=== PATIENT | male | born 1980 | race Caucasian/White ===

== ENCOUNTER 2022-07-30 16:33 | Emergency (ER) | payer SELFPAY ==
[~2022-07-30] VITALS: Ht 195.6 cm; Wt 132.7 kg
[~2022-07-30 16:33] MED LIST: METO50TA15
[2022-07-30] MEDS ORDERED: TETANUS-DIPTH-ACEL PERTUSSIS 0.5ML SYR Tdap IM ONE (18:45)
[2022-07-30] MEDS ORDERED: LIDOCAINE 1% HCL (LOCAL ANESTH.) INJ 20ML MDV ID ONE (18:45)
[2022-07-30] MEDS ORDERED: CEPH250C28 PO (19:05)
[2022-07-30 19:08] VITALS: BP 129/99
== END 2022-07-30 19:11 | disposition home or self-care (01) ==
LOC: ER 16:33
DX: S61.411A Laceration without foreign body of right hand, initial encounter (principal); F17.210 Nicotine dependence, cigarettes, uncomplicated; W25.XXXA Contact with sharp glass, initial encounter; Y93.89 Activity, other specified; Y92.89 Other specified places as the place of occurrence of the external cause; Y99.8 Other external cause status
CPT/HCPCS: 12001; 90471; 90715; 99283; J2001

== ENCOUNTER 2022-09-26 10:28 | Inpatient (IN) | payer BC, MEDICAID ==
[~2022-09-26] VITALS: Ht 193 cm; Wt 142.3 kg
[~2022-09-26 10:28] MED LIST changes: +CEPH250C28 PO
[2022-09-26] MEDS ORDERED: PANTOPRAZOLE 40 MG TAB PO ONE (11:15)
[2022-09-26 11:25] LABS: Urine Bacteria NONE SEEN /hpf (None Seen); Urine Blood Negative /uL (Negative); Urine Mucus FEW (None Seen); Urine Specific Gravity 1.016 (1.001-1.035); Urine WBC 1 /hpf (0 - 3)
[2022-09-26] MEDS ORDERED: FOLIC ACID 1 MG, MULTIPLE VITAMIN 10 ML, MAGNESIUM SULF SDV 50% 8 MEQ, THIAMINE INJ 100... INJ STA ×5 (11:27)
[2022-09-26 11:42] LABS: Hematocrit 37.5 % (41.0-53.0); Hemoglobin 12.9 g/dL (13.5-17.5); Mean Corpuscular Hemoglobin 38.6 pg (28.0-32.0); White Blood Cell 4.1 10^3/uL (4.4-10.8)
[2022-09-26 11:44] LABS: Mean Corpuscular Hgb Conc. 34.5 g/dL (32.0-36.0); Red Blood Cells 3.35 10^6/uL (4.5-5.90); Red Cell Distribution Width 15.9 % (11.8-14.3)
[2022-09-26 11:49] LABS: Albumin 2.5 g/dL (3.4-5.0); Potassium 3.7 mmol/L (3.5-5.1)
[2022-09-26 11:52] LABS: BUN/Creatinine Ratio 7.8 (10.0-20.0); INR 1.77 (0.9-1.15); Partial Thromboplastin Time 35.8 sec (24.6-33.4)
[2022-09-26 11:54] LABS: Bilirubin, Total 4.6 mg/dL (0.2-1.0); Total Protein 7.5 g/dL (6.4-8.2)
[2022-09-26 12:12] LABS: Band Neutrophils % (manual) 0; Basophils % (manual) 0 (0.0-2.0); Blast Cells 0; Metamyelocytes % 0; Myelocytes % 0; Promyelocytes % 0; Reactive Lymphocytes 0
[2022-09-26 12:16] LABS: Eosinophils % (manual) 2 (0-7); Lymphocytes % (manual) 25 (10.0-50.0); Monocytes % (manual) 5 (0-12)
[2022-09-26] MEDS ORDERED: hydrALAZINE HCL 20 MG/ML VL IV PRN (17:15)
[2022-09-26] MEDS ORDERED: FUROSEMIDE 20 MG/2 ML VIAL IV ONE (17:15)
[2022-09-26] MEDS ORDERED: POTASSIUM CHL 20 Meq TABLET PO ONE (17:15)
[2022-09-26] MEDS ORDERED: MULTIPLE VITAMIN TAB PO ONE (17:15)
[2022-09-26] MEDS ORDERED: cefTRIAXone 1GM/50ML D5W 50 ML IV ONE (18:45)
[2022-09-26] MEDS ORDERED: metroNIDAZOLE 500MG/100ML 100 ML IV ONE (18:45)
[2022-09-26] MEDS: metroNIDAZOLE 500MG/100ML 100 ML IV SCH (22:02)
[2022-09-27] MEDS ORDERED: ACETAMINOPHEN 325 MG TAB PO PRN (04:45)
[2022-09-27] MEDS: SALINE 0.65 % NASAL SPRAY 45ML BOTTLE EACHNOSTRI SCH ×4 (04:49→21:45)
[2022-09-27 05:40] LABS: Mean Corpuscular Hemoglobin 39.4 pg (28.0-32.0); Mean Corpuscular Hgb Conc. 35.4 g/dL (32.0-36.0)
[2022-09-27 05:42] LABS: Hematocrit 30.3 % (41.0-53.0); Hemoglobin 10.8 g/dL (13.5-17.5); Mean Corpuscular Volume 111.2 fL (80.0-100.0); Red Blood Cells 2.73 10^6/uL (4.5-5.90); White Blood Cell 3.7 10^3/uL (4.4-10.8)
[2022-09-27 05:52] LABS: Basophils % (manual) 0 (0.0-2.0); Blast Cells 0; Metamyelocytes % 0; Promyelocytes % 0; Reactive Lymphocytes 0
[2022-09-27 06:06] LABS: Calcium 7.6 mg/dL (8.5-10.1)
[2022-09-27 06:13] LABS: Albumin 2.1 g/dL (3.4-5.0); BUN/Creatinine Ratio 12.5 (10.0-20.0); Bilirubin, Total 4.4 mg/dL (0.2-1.0); Total Protein 6.4 g/dL (6.4-8.2)
[2022-09-27] MEDS: metroNIDAZOLE 500MG/100ML 100 ML IV SCH (06:14)
[2022-09-27 06:57] LABS: Band Neutrophils % (manual) 6; Eosinophils % (manual) 2 (0-7); Lymphocytes % (manual) 27 (10.0-50.0); Monocytes % (manual) 13 (0-12); Myelocytes % 1
[2022-09-27 07:05] LABS: Potassium 3.8 mmol/L (3.5-5.1)
[2022-09-27] MEDS ORDERED: PANTOPRAZOLE 40 MG/10 ML VIAL INJ IV SCH (10:00)
[2022-09-27] MEDS ORDERED: LOSARTAN POTASSIUM 50 MG TAB PO SCH (10:00)
[2022-09-27] MEDS: cefTRIAXone 1GM/50ML D5W 50 ML IV SCH (10:29)
[2022-09-27] MEDS: MULTIPLE VITAMIN TAB PO SCH (10:30)
[2022-09-27] MEDS: POTASSIUM CHL 10 Meq TABLET PO SCH (10:30)
[2022-09-27] MEDS: FUROSEMIDE 20 MG/2 ML VIAL IV SCH (10:31)
[2022-09-27] MEDS ORDERED: POLYETHYLENE GLYCOL 17 GM PWDR PO PRN (11:45)
[2022-09-27] MEDS ORDERED: SPIRONOLACTONE 25 MG TAB PO ONE (11:45)
[2022-09-27] MEDS ORDERED: THIAMINE HCL 100 MG TAB PO ONE (11:45)
[2022-09-27] MEDS ORDERED: IOHEXOL 350 MG/ML 100ML IJ ONE (11:45)
[2022-09-27] MEDS ORDERED: FOLIC ACID 1 MG TAB PO ONE (11:45)
[2022-09-27] MEDS ORDERED: POLYETHYLENE GLYCOL 17 GM PWDR PO ONE (11:45)
[2022-09-27 13:00] VITALS: BP 160/81
[2022-09-27 14:00] VITALS: BP 91/52
[2022-09-27 14:03] VITALS: BP 91/52
[2022-09-27 14:15] VITALS: BP 109/45
[2022-09-27] MEDS ORDERED: LOSA-69 PO (14:25)
[2022-09-27 17:00] VITALS: BP 109/45
[2022-09-27] MEDS: FAMOTIDINE 20 MG TAB PO SCH (21:45)
[2022-09-27 22:00] VITALS: BP 128/67
[2022-09-28 05:00] VITALS: BP 121/68
[2022-09-28] MEDS: SALINE 0.65 % NASAL SPRAY 45ML BOTTLE EACHNOSTRI SCH ×2 (05:42→16:10)
[2022-09-28 06:44] LABS: INR 1.97 (0.9-1.15); Partial Thromboplastin Time 39.6 sec (24.6-33.4)
[2022-09-28 07:31] LABS: Albumin 1.9 g/dL (3.4-5.0); BUN/Creatinine Ratio 14.8 (10.0-20.0); Calcium 7.8 mg/dL (8.5-10.1); Potassium 3.9 mmol/L (3.5-5.1)
[2022-09-28 07:32] LABS: Bilirubin, Total 3.3 mg/dL (0.2-1.0); Total Protein 5.8 g/dL (6.4-8.2)
[2022-09-28] MEDS ORDERED: LACTULOSE 20Gm/30ML SOLN PO PRN (08:30)
[2022-09-28] MEDS ORDERED: phytonadione 10 MG in SODIUM CHL 0.9% 50 ML IV ONE (08:30)
[2022-09-28 09:00] VITALS: BP 128/70
[2022-09-28 09:38] LABS: Hepatitis B Surface Antibody Negative (Negative)
[2022-09-28] MEDS: MULTIPLE VITAMIN TAB PO SCH (09:53)
[2022-09-28] MEDS: FAMOTIDINE 20 MG TAB PO SCH (09:54)
[2022-09-28] MEDS: POTASSIUM CHL 10 Meq TABLET PO SCH (09:55)
[2022-09-28] MEDS: cefTRIAXone 1GM/50ML D5W 50 ML IV SCH (09:56)
[2022-09-28] MEDS: FUROSEMIDE 20 MG/2 ML VIAL IV SCH (09:56)
[2022-09-28] MEDS ORDERED: FOLIC ACID 1 MG TAB PO SCH (10:00)
[2022-09-28] MEDS ORDERED: SPIRONOLACTONE 25 MG TAB PO SCH (10:00)
[2022-09-28] MEDS ORDERED: THIAMINE HCL 100 MG TAB PO SCH (10:00)
[2022-09-28 10:12] LABS: Hepatitis A Total Antibody Positive (Negative)
[2022-09-28 11:57] LABS: Hepatitis C Antibody Negative (Negative)
[2022-09-28] MEDS ORDERED: FOLI1TAB6 PO (12:52)
[2022-09-28] MEDS ORDERED: LACT10SO3 PO (12:52)
[2022-09-28] MEDS ORDERED: THIA100T10 PO (12:52)
[2022-09-28] MEDS ORDERED: POTA-167 PO (12:52)
[2022-09-28] MEDS ORDERED: FURO1TAB31 PO (12:52)
[2022-09-28] MEDS ORDERED: SPIR25TA PO (12:52)
[2022-09-28] MEDS ORDERED: MULTTAB99 PO (12:52)
[2022-09-28 13:00] VITALS: BP 137/80
[2022-09-28 15:38] VITALS: BP 128/70
== END 2022-09-28 16:00 | disposition home or self-care (01) | DRG 280 ==
LOC: ER 10:28 → OVERFLOW 18:31 → CENTRAL 09-27 13:30
PROVIDERS: ADMIT Nurse Practitioner Family; ATTEND Internal Medicine
PROC: 0W9G3ZZ Drainage of Peritoneal Cavity, Percutaneous Approach (ICD-10-PCS; principal; 2022-09-27)
DX: K70.31 Alcoholic cirrhosis of liver with ascites (principal); E43 Unspecified severe protein-calorie malnutrition; D69.6 Thrombocytopenia, unspecified; R65.10 Systemic inflammatory response syndrome (SIRS) of non-infectious origin without acute organ dysfunction; I10 Essential (primary) hypertension; E66.01 Morbid (severe) obesity due to excess calories; Z20.822 Contact with and (suspected) exposure to COVID-19; F10.10 Alcohol abuse, uncomplicated; R60.1 Generalized edema; F17.210 Nicotine dependence, cigarettes, uncomplicated; M85.68 Other cyst of bone, other site; Z68.36 Body mass index [BMI] 36.0-36.9, adult; Z71.41 Alcohol abuse counseling and surveillance of alcoholic; Z90.49 Acquired absence of other specified parts of digestive tract
CPT/HCPCS: 36415; 71045; 71275; 74176; 76705; 76942; 80053; 80061; 81001; 82140; 82607; 82746; 83036; 83605; 83735; 83986; 84443; 85007; 85027; 85379; 85610; 85730; 86704; 86706; 86708; 86803; 87205; 87340; 87426; 89051; 93306; 93970; 96365; C9113; G0378; J0696; J3430; J3490

== ENCOUNTER 2023-04-08 15:54 | Emergency (ER) | payer MEDICAID ==
[~2023-04-08] VITALS: Ht 193 cm; Wt 80.0 kg
[~2023-04-08 15:54] MED LIST changes: -CEPH250C28 PO; +FOLI-119 PO; +FURO1TAB31 PO; +LACT10SO3 PO; -METO50TA15; +MULTTAB99 PO; +POTA-211 PO; +SPIR25TA PO; +THIA100T10 PO
[2023-04-08 16:26] VITALS: BP 137/76; PULSE 112; RESP 15; TEMP 99.1; O2SAT 98
[2023-04-08 16:57] LABS: Basophils # (auto) 0 10 ^3/uL (0-0.2); Basophils % (auto) 0.4 % (0.0-2.0); Eosinophils # (auto) 0.1 10 ^3/uL (0-0.8); Eosinophils % (auto) 1.5 % (0.0-7.0); Hematocrit 38.5 % (41.0-53.0); Hemoglobin 13.3 g/dL (13.5-17.5); Lymphocytes # (auto) 1.2 10 ^3/uL (0.4-5.4); Lymphocytes % (auto) 22.4 % (10.0-50.0); Mean Corpuscular Hemoglobin 36.7 pg (28.0-32.0); Mean Corpuscular Hgb Conc. 34.6 g/dL (32.0-36.0); Monocytes # (auto) 0.3 10 ^3/uL (0-1.3); Monocytes % (auto) 6.3 % (0.0-12.0); Neutrophils # (auto) 3.7 10 ^3/uL (1.6-8.6); Neutrophils % (auto) 69.4 % (37.0-80.0); Nucleated Red Blood Cells % 0.1 %; Red Blood Cells 3.63 10^6/uL (4.5-5.90); Red Cell Distribution Width 18.9 % (11.8-14.3); White Blood Cell 5.3 10^3/uL (4.4-10.8)
[2023-04-08 17:11] LABS: Urine Bacteria FEW /hpf (None Seen); Urine Blood 1+ /uL (Negative); Urine Clarity Clear (Clear); Urine Color Yellow (Yellow); Urine Protein, UAD Negative (Negative); Urine Urobilinogen Normal (Negative); Urine WBC 3 /hpf (0 - 3)
[2023-04-08 17:14] LABS: INR 1.88 (0.9-1.15); Prothrombin Time 18.9 sec (9.3-11.8)
[2023-04-08 17:17] LABS: Alanine Aminotransferase 51 U/L (7-40); Albumin 2.9 g/dL (3.2-4.8); Alkaline Phosphatase 191 U/L (46-116); Anion Gap 5 (5-15); Aspartate Aminotransferase 83 U/L (13-40); BUN/Creatinine Ratio 10.7 (10.0-20.0); Bilirubin, Total 7.4 mg/dL (0.2-1.0); Blood Urea Nitrogen 9 mg/dL (9-23); Calcium 8.3 mg/dL (8.7-10.4); Carbon Dioxide 27 mmol/L (20-30); Chloride 106 mmol/L (98-107); Glucose 102 mg/dL (74-106); Lipase 35 U/L (12-53); Potassium 3.8 mmol/L (3.5-5.1); Sodium 138 mmol/L (136-145); Total Protein 6.6 g/dL (5.7-8.2)
[2023-04-08] MEDS ORDERED: PANTOPRAZOLE 40 MG/10 ML VIAL INJ IV ONE (18:00)
[2023-04-08] MEDS ORDERED: PHYTONADIONE(VitK) ORAL Susp 10mg/10ml(1mg/ml) PO ONE (18:30)
[2023-04-08] MEDS ORDERED: PROP1TAB51 PO (18:34)
[2023-04-08] MEDS ORDERED: PANT40TA2 PO (18:34)
[2023-04-08] MEDS ORDERED: TRAM50TA2 PO ×2 (18:36)
== END 2023-04-08 18:56 | disposition home or self-care (01) ==
LOC: ER 15:54
DX: K76.6 Portal hypertension (principal); I83.90 Asymptomatic varicose veins of unspecified lower extremity; K70.30 Alcoholic cirrhosis of liver without ascites; R31.9 Hematuria, unspecified; F17.210 Nicotine dependence, cigarettes, uncomplicated; F10.90 Alcohol use, unspecified, uncomplicated; Z79.899 Other long term (current) drug therapy; Z90.49 Acquired absence of other specified parts of digestive tract; Y90.0 Blood alcohol level of less than 20 mg/100 ml
CPT/HCPCS: 36415; 74176; 80053; 81001; 82140; 83690; 85025; 85610; 96374; 99285; C9113; J3430